=== PATIENT | male | born 1965 | race African-American/Black ===

== ENCOUNTER 2021-09-06 15:25 | Emergency (ER) | payer OTHER ==
[2021-09-06] MEDS ORDERED: Ibuprofen 200 MG TAB ONE (16:05)
[2021-09-06] MEDS ORDERED: HYDROcodone/Acetaminophen 5/325 mg Tablet ONE (16:05)
== END 2021-09-06 16:53 | disposition home or self-care (01) ==
LOC: BURERS 15:25
DX: S83.92XA Sprain of unspecified site of left knee, initial encounter (principal); S16.1XXA Strain of muscle, fascia and tendon at neck level, initial encounter; E78.5 Hyperlipidemia, unspecified; E78.00 Pure hypercholesterolemia, unspecified; F17.210 Nicotine dependence, cigarettes, uncomplicated; V64.5XXA Driver of heavy transport vehicle injured in collision with heavy transport vehicle or bus in traffic accident, initial encounter
CPT/HCPCS: 72170